=== PATIENT | male | born 1965 | race Hispanic/Latino ===

== ENCOUNTER → 2024-06-29 | Outpatient (CLI) | payer BC, MEDICARE ==
--- NOTE | 2024-06-29 10:19 | HMCIMG ---
CT ABDOMEN WITHOUT CONTRAST INDICATION: Abnormal levels of serum enzymes, epigastric abdominal pain. TECHNIQUE: Routine transaxial imaging using 5 mm slice thickness through the abdomen without the administration of IV contrast. Thin slice reconstructions are also provided. Coronal and sagittal reformatted images acquired for interpretation. CT was performed with one or more of the following dose reduction techniques: Automated exposure control, adjustment of the mA and/or kV according to patient size, or use of iterative reconstruction technique. COMPARISON: None FINDINGS: Heart size is normal. Visible lung bases are clear. No abnormal renal calcifications, hydronephrosis, perinephric inflammation, or proximal hydroureter detected. The liver is normal in size and smooth in contour without biliary duct dilation. The spleen is normal in size and attenuation. The gallbladder appears normal. The pancreas appears normal without pancreatic duct dilation. The adrenal glands appear normal. No significant abdominal, retrocrural or retroperitoneal adenopathy noted. No evidence for intra-abdominal free air or organized fluid collection. Moderate stool burden. Mild calcific plaque is noted along the abdominal aortic and iliac vessel amaral without aneurysmal dilation. Visible osseous structures are intact. IMPRESSION: No evidence for any acute intra-abdominal or pelvic process.
== END | disposition home or self-care (01) ==
LOC: RAH 08:21
PROVIDERS: ATTEND Student in an Organized Health Care Education/Training Program
DX: R10.13 Epigastric pain (principal); R74.8 Abnormal levels of other serum enzymes; I70.0 Atherosclerosis of aorta; I70.90 Unspecified atherosclerosis
CPT/HCPCS: 74150